=== PATIENT | female | born 1985 | race Caucasian/White ===

== ENCOUNTER 2025-04-06 21:25 | Emergency (ER) | payer MEDICAID ==
[~2025-04-06] VITALS: Ht 157.5 cm; Wt 95.5 kg
[2025-04-06 21:52] VITALS: TEMP 98.2
[2025-04-06 22:11] LABS: PLATELET COUNT (AUTO) 311 K/uL (150-450); RED BLOOD CELL COUNT(AUTO) 4.83 MIL/uL (4.00-5.20); RED CELL DISTRIBUTION WIDTH 13.9 % (11.5-14.5); WHITE BLOOD COUNT (AUTO) 7.1 K/uL (4.5-11.0)
[2025-04-06 22:26] LABS: CALCIUM, TOTAL 9.1 mg/dL (8.8-10.5); CREATININE 0.75 mg/dL (0.60-1.30); GLOMERULAR FILTR. RATE CALC > 60 mL/min (>60); GLUCOSE,RANDOM 146 mg/dL (70-110); SODIUM SERUM 137 mmol/L (136-145); UREA NITROGEN, BLOOD 5 mg/dL (7-18)
[2025-04-06 22:29] LABS: ASPARTATE AMINOTRANSFERASE 32.0 U/L (15-37); TOTAL PROTEIN, SERUM 8.1 g/dL (6.4-8.2)
[2025-04-06 23:23] LABS: APPEARANCE,URINE CLEAR (CLEAR); GLUCOSE, URINE (UA) NEGATIVE (NEGATIVE); LEUKOCYTE ESTERASE ,URINE NEGATIVE (NEGATIVE); NITRATE,URINE NEGATIVE (NEGATIVE); OCCULT BLOOD,URINE LARGE (NEGATIVE)
[2025-04-06 23:30] LABS: SPECIFIC GRAVITIY, URINE 1.030 (1.003-1.030)
[2025-04-07] MEDS: ONDANSETRON HCL 4 MG/2 ML VIAL IVP ONE (00:09)
[2025-04-07] MEDS: ACETAMINOPHEN 1000 MG/ISO-OSM 100 ML IV ONE (00:09)
[2025-04-07] MEDS: SODIUM CHLORIDE 0.9% 1,000 ML IV ONE (00:09)
[2025-04-07 00:21] LABS: SQUAMOUS EPITHELIAL CELL,UR Rare /LPF (None Seen)
[2025-04-07] MEDS: KETOROLAC TROMETHAMINE 30 MG/ML VIAL IVP ONE (01:49)
[2025-04-07 02:39] VITALS: BP 123/75; PULSE 75; RESP 16; O2SAT 98
== END 2025-04-07 04:54 | disposition admitted as inpatient to this hospital (09) ==
LOC: EMS 21:32
DX: R10.A2 Flank pain, left side (principal); R31.9 Hematuria, unspecified; R30.0 Dysuria; E11.9 Type 2 diabetes mellitus without complications; Z88.5 Allergy status to narcotic agent; Z87.442 Personal history of urinary calculi
CPT/HCPCS: 99285; 80048; 80076; 81001; 82962; 83690; 84703; 85025; 36415; 74176; 96374; 96375; 96361; J2405; J7030 ×2; J1885; J1171; J0131